=== PATIENT | female | born 1990 | race Caucasian/White ===

== ENCOUNTER 2022-01-08 18:48 | Observation (INO) | payer OTHER ==
[~2022-01-08] VITALS: Ht 167.6 cm; Wt 72.6 kg
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
--- NOTE | 2022-01-09 17:03 | PR ---
[facility] [address] [facility] [place] [facility] [place], [place] [address] Signed AP Progress Notes Datetime Report Generated by CPN: 01/09/2022 17:03 Chief Complaint: Feels well. Denies any pain, bleeding, SROM. Reports GFM. PHYSICAL EXAM: [id number] General: Normal Cardiovascular: Normal Respiratory: Normal Back: Abnormal Abdomen: Abnormal Extremities: Normal Physical Exam Comments: Abdomen is gravid. Soft, nontender. Impression: Doing well. She has not had any evidence of labor or abruption. Plan: D/C home at 1800 Precautions reviewed VITAL SIGNS: [id number] Vital Signs: Reviewed; Within Normal Limits EXAM: [id number] Contraction Comments: q 4 to 10 min, mild MEMBRANES: [id number] FETUS A: [id number] FHR Baseline: 155 Variability: Moderate 6-25bpm Accelerations: 10X10 FHR Comments: reassuring for gestational age FETUS B: [id number] PROGRESS NOTES: N6804641 Signing Physician: Hui Verma MD Copies: ~ *Electronically Signed* 01/09/22 1703 HUI VERMA MD PATIENT NAME: JENNIFER,MANUEL ELISA PROGRESS NOTE DATE OF : [birth year] PHYSICIAN: HUI VERMA MD RPT #: [id number] REPORT IS CONFIDENTIAL AND NOT TO BE RELEASED WITHOUT AUTHORIZATION
== END 2022-01-09 18:00 | disposition home or self-care (01) ==
LOC: FBCO 18:48 → FBC 18:49
PROVIDERS: ADMIT Obstetrics & Gynecology; ATTEND Obstetrics & Gynecology
DX: Z04.1 Encounter for examination and observation following transport accident (principal); Z3A.25 25 weeks gestation of pregnancy; Z20.822 Contact with and (suspected) exposure to COVID-19
CPT/HCPCS: U0003

== ENCOUNTER 2022-03-23 07:53 | Inpatient (IN) | payer OTHER, MEDICAID ==
[~2022-03-23] VITALS: Ht 167.6 cm; Wt 87.5 kg
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
--- NOTE | 2022-03-25 10:27 | OR ---
[facility] [address] [facility] [place], [place] [address] Signed DATE OF OPERATION: 03/24/2022 SURGEON: Richard Faustin MD PREOPERATIVE DIAGNOSIS: bleeding. POSTOPERATIVE DIAGNOSIS: bleeding, resolved. DESCRIPTION OF PROCEDURE: With the patient prepped and draped in the usual manner and adequate anesthesia was obtained, the patient was placed in the lithotomy position. The cervix was grasped with the ring forceps and then using 2 ring forceps the entire edge of the cervix was visualized. No evidence of bleeding or cervical laceration was noted. The rectum was then inspected and appeared intact. No evidence of bleeding was noted there either. The episiotomy site was investigated and no areas of bleeding were noted there. The laceration of the third-degree extension was inspected and there was a small area on the perineal region, midline of the episiotomy that had some oozing. At this point, two 0-Chromic [id number]-[id number] were placed in this area that was bleeding. The area was monitored for several minutes and no further bleeding was noted. Both sponge and instrument counts were correct and the patient tolerating the procedure well. The patient was taken to the recovery room in stable condition. Estimated blood loss 50 mL during this procedure. This makes a total 500 mL from delivery and bleed. Richard Faustin MD BV/MODL /[id number] Electronically Signed By: RICHARD FAUSTIN MD 03/25/22 1027 PATIENT NAME: MANUEL RODRIGUEZ OPERATIVE REPORT DATE OF : [birth year] REPORT #: [id number] PHYSICIAN: RICHARD FAUSTIN MD PCP: SELMA MORALES MD REPORT IS CONFIDENTIAL AND NOT TO BE RELEASED WITHOUT AUTHORIZATION [address] [address] Signed Copies: ~ Electronically Signed By: RICHARD FAUSTIN MD 03/25/22 1027 PATIENT NAME: MANUEL RODRIGUEZ OPERATIVE REPORT DATE OF : [birth year] REPORT #: [id number] PHYSICIAN: RICHARD FAUSTIN MD PCP: SELMA MORALES MD REPORT IS CONFIDENTIAL AND NOT TO BE RELEASED WITHOUT AUTHORIZATION
== END 2022-03-24 12:30 | disposition home or self-care (01) | DRG 768 ==
LOC: FBCO 07:53 → FBC 08:27
PROVIDERS: ADMIT Obstetrics & Gynecology; ATTEND Obstetrics & Gynecology
PROC: 3E0R3BZ Introduction of Anesthetic Agent into Spinal Canal, Percutaneous Approach (ICD-10-PCS; 2022-03-23)
PROC: 10E0XZZ Delivery of Products of Conception, External Approach (ICD-10-PCS; principal; 2022-03-23 17:00)
PROC: 0DQR0ZZ Repair Anal Sphincter, Open Approach (ICD-10-PCS; 2022-03-24)
DX: O60.14X0 Preterm labor third trimester with preterm delivery third trimester, not applicable or unspecified (principal); Z37.0 Single live birth; O72.1 Other immediate postpartum hemorrhage; O70.20 Third degree perineal laceration during delivery, unspecified; Z3A.35 35 weeks gestation of pregnancy; Z79.899 Other long term (current) drug therapy
CPT/HCPCS: 36415; 85025; 85027; 86850; 86900; 86901; 87502; A9270; C9803; J1100; J2001; J2250; J2405; J2540; J2590; J2704; J2765; J2795; J7121; U0003

== ENCOUNTER 2022-07-31 21:43 | Emergency (ER) | payer OTHER, MEDICAID ==
[~2022-07-31] VITALS: Ht 167.6 cm; Wt 74.8 kg
== END 2022-07-31 22:58 | disposition home or self-care (01) ==
LOC: ED 21:43
DX: N93.9 Abnormal uterine and vaginal bleeding, unspecified (principal)
CPT/HCPCS: 36415; 80053; 84703; 85025; 99284

== ENCOUNTER 2024-09-13 01:39 | Inpatient (IN) | payer OTHER ==
[~2024-09-13] VITALS: Ht 167.6 cm; Wt 93.0 kg
[2024-09-13] MEDS ORDERED: PRENATAL TABLE1 EAC5 PO (05:38)
[2024-09-13] MEDS ORDERED: CALCIUM CARBONATE 500 MG CHEW PO PRN ×2 (05:45→21:15)
[2024-09-13] MEDS ORDERED: LACTATED RINGER'S 1,000 ML IV PRN (05:45)
[2024-09-13] MEDS ORDERED: OXYTOCIN/DEXTROSE 5% 20 UNITS/100 ML BAG IV SCH (05:45)
[2024-09-13] MEDS ORDERED: MAGNESIUM HYDROXIDE/AL HYDROX 30 ML CUP PO PRN ×2 (05:45→21:15)
[2024-09-13] MEDS ORDERED: LACTATED RINGER'S 1,000 ML IV SCH (05:45)
[2024-09-13 05:59] LABS: HEMATOCRIT 35.1 % (35.0-50.0); HEMOGLOBIN 11.8 g/dL (12.0-18.0); MCH 27.9 (27-36); MCHC 33.6 g/dl (30-36); RBC 4.23 M/ul (4.3-5.7); RDW 14.3 (10.5-15.0)
[2024-09-13 06:15] VITALS: BP 118/75
[2024-09-13 06:37] LABS: ABO A; ANTIBODY SCREEN NEGATIVE; RH POSITIVE
[2024-09-13 06:41] LABS: AMPHETAMINES, URINE NEGATIVE (NEGATIVE); BARBITURATES, URINE NEGATIVE (NEGATIVE); BENZODIAZEPINE, URINE NEGATIVE (NEGATIVE); BUPRENORPHINE, URINE NEGATIVE (NEGATIVE); CANNABINOID, URINE NEGATIVE (NEGATIVE); COCAINE, URINE NEGATIVE (NEGATIVE); ECSTASY, URINE NEGATIVE (NEGATIVE); FENTANYL, URINE NEGATIVE (NEGATIVE); METHADONE, URINE NEGATIVE (NEGATIVE); OPIATES, URINE NEGATIVE (NEGATIVE); OXYCODONE, URINE NEGATIVE (NEGATIVE); PHENCYCLIDINE, URINE NEGATIVE (NEGATIVE)
[2024-09-13] MEDS ORDERED: ROPIVACAINE 0.2% 200 ML BAG ONE (14:14)
[2024-09-13] MEDS ORDERED: fentaNYL citrate 100 MCG/2 ML VIAL ONE (14:14)
[2024-09-13] MEDS ORDERED: ePHEDrine KIT FOR FBC IV ONE (14:47)
[2024-09-13] MEDS ORDERED: LACTATED RINGER'S 500 ML IV PRN (15:00)
[2024-09-13] MEDS ORDERED: ROPIVACAINE 0.2% 200 ML BAG EPIDURAL SCH (15:00)
[2024-09-13] MEDS ORDERED: LACTATED RINGER'S 2,000 ML IV ONE (15:00)
[2024-09-13] MEDS ORDERED: ePHEDrine sulfate 5 MG/ML SYRINGE IV PRN (15:00)
--- NOTE | 2024-09-13 16:44 | PR ---
[facility] [address] [facility] [place], [place] [address] Signed Progress Notes IP Datetime Report Generated by CPN: 09/13/2024 16:44 PROGRESS NOTES: [id number] Impression: Normal Progression of Labor; Reassuring Heart Rate Procedures: Sterile Vag Exam Plan: Continue Present Management; Anticipate Vaginal Delivery Informed Consent Obtain: Vaginal Delivery VITAL SIGNS: [id number] Vital Signs: Reviewed; Within Normal Limits EXAM: [id number] Dilatation: 10.0 Effacement: 100 Station: 0 Contractions: q 1-2 min MEMBRANES: [id number] Comments: Pt seen and examined. Doing well. Feeling some pelvic pressure but otherwise comfortable w/ epidural. Reviewed anticipated course of 2nd stage of labor. All questions answered. FETUS A: [id number] FHR Baseline: 140 Variability: Moderate 6-25bpm Accelerations: 15X15 Decelerations: Variable FHR Category: Category II Presentation: Vertex Comments on Fetus A: No evidence of metabolic acidosis FETUS B: [id number] Signing Physician: Melyssa Newell DO Copies: ~ *Electronically Signed* 09/13/24 1644 MELYSSA NEWELL ([place]) DO PATIENT NAME: MANUEL RODRIGUEZ PROGRESS NOTE DATE OF : 89 PHYSICIAN: MELYSSA NEWELL) DO RPT #: [id number] REPORT IS CONFIDENTIAL AND NOT TO BE RELEASED WITHOUT AUTHORIZATION
[2024-09-13] MEDS ORDERED: SENNOSIDES/DOCUSATE 1 EA TAB PO SCH (21:10)
[2024-09-13] MEDS ORDERED: IBUPROFEN 600 MG TAB PO PRN (21:15)
[2024-09-13] MEDS ORDERED: ACETAMINOPHEN 325 MG TAB PO PRN (21:15)
[2024-09-13] MEDS ORDERED: HYDROCORTISONE ACETATE 25 MG SUPP PR PRN (21:15)
[2024-09-13] MEDS ORDERED: BENZOCAINE 60 ML AEROSOL TOP PRN (21:15)
[2024-09-13] MEDS ORDERED: HYDROCODONE/ACETA 5/325 TAB PO PRN (21:15)
[2024-09-13] MEDS ORDERED: WITCH HAZEL/GLYCERIN 1 EA PAD TOP PRN (21:15)
[2024-09-13] MEDS ORDERED: MAGNESIUM HYDROXIDE 30 ML UDC PO PRN (21:15)
[2024-09-13] MEDS ORDERED: OXYCODONE/APAP 5/325 TAB PO PRN (21:15)
[2024-09-13] MEDS ORDERED: OXYCODONE HCL 5 MG TAB PO PRN (21:15)
[2024-09-14 05:27] LABS: HEMATOCRIT 31.5 % (35.0-50.0); HEMOGLOBIN 10.5 g/dL (12.0-18.0); MCH 27.7 (27-36); MCHC 33.3 g/dl (30-36); MCV 83.3 fl (81-99); RBC 3.78 M/ul (4.3-5.7); RDW 13.9 (10.5-15.0)
--- NOTE | 2024-09-14 08:55 | PR ---
[facility] [address] [facility] [place], [place] [address] Signed PP Progress Notes Datetime Report Generated by CPN: 09/14/2024 08:55 SUBJECTIVE: [id number] Pain: Within Normal Limits Nausea/Vomiting: Denies Bowel Movement: No Vital Signs: N1313930 Vital Signs: Reviewed; Within Normal Limits Cardiovascular: Normal Respiratory: Normal Abdomen/Uterus: Normal Lochia: Normal Breasts: Normal CVA Tenderness: Normal Extremities: Normal Incision: Not Applicable Progress: Normal Exam Comments: Fundus firm U-2 nontender IMPRESSION/PLAN/PROCEDURES: [id number] Impression: Normal Progression Plan: Discharge Progress Notes: Pt seen and examined. Doing well. Ambulating, voiding, and tolerating full diet. Pain and lochia minimal. . No concerns. Desires d/c home. Reviewed d/c instructions and medications. Planning vasectomy / micronor for pp contraception. No other questions or concerns Signing Physician: Melyssa Newell DO Copies: ~ *Electronically Signed* 09/14/24 0855 MELYSSA NEWELL ([place]) DO PATIENT NAME: JENNIFERMANUELNUBIA PÉREZ PROGRESS NOTE DATE OF : 89 PHYSICIAN: MELYSSA NEWELL) DO RPT #: [id number] REPORT IS CONFIDENTIAL AND NOT TO BE RELEASED WITHOUT AUTHORIZATION
== END 2024-09-14 18:50 | disposition home or self-care (01) | DRG 807 ==
LOC: FBC 01:39
PROVIDERS: ADMIT Obstetrics & Gynecology; ATTEND Obstetrics & Gynecology
PROC: 10E0XZZ Delivery of Products of Conception, External Approach (ICD-10-PCS; principal; 2024-09-13)
PROC: 10907ZC Drainage of Amniotic Fluid, Therapeutic from Products of Conception, Via Natural or Artificial Opening (ICD-10-PCS; 2024-09-13)
PROC: 0HQ9XZZ Repair Perineum Skin, External Approach (ICD-10-PCS; 2024-09-13)
PROC: 3E0R3BZ Introduction of Anesthetic Agent into Spinal Canal, Percutaneous Approach (ICD-10-PCS; 2024-09-13)
PROC: 00HU33Z Insertion of Infusion Device into Spinal Canal, Percutaneous Approach (ICD-10-PCS; 2024-09-13)
DX: O69.81X0 Labor and delivery complicated by cord around neck, without compression, not applicable or unspecified (principal); Z37.0 Single live birth; Z3A.39 39 weeks gestation of pregnancy; Z98.890 Other specified postprocedural states; O70.0 First degree perineal laceration during delivery
CPT/HCPCS: 01960; 36415; 80307; 85027; 86850; 86900; 86901; A9270; J2590; J2795; J3010; J7121